=== PATIENT | female | born 1960 | race Caucasian/White ===

== ENCOUNTER 2017-03-29 08:00 | Outpatient (CLI) | payer BC ==
--- NOTE | 2017-03-29 10:05 | MRI ---
MRI LUMBAR SPINE: DATE: 03/29/17. PROVIDED CLINICAL HISTORY: Back pain with radiculopathy. FINDINGS: Five lumbar vertebral bodies are assumed. Lumbar alignment appears normal. Vertebral body heights a ppear preserved. The conus medullaris is normal in signal and terminates at an appropriate level. N o focal concerning region of marrow signal abnormality is evident. The visualized extraspinal soft t issues demonstrate no concerning abnormality. T2 hyperintensity involving the left kidney is incompl etely characterized on the basis of this study but, statistically reflects a cyst. At T12-L1, there is a broad-based disk bulge and bilateral facet arthritis without significant centra l canal or foraminal narrowing apparent. At L1-2, there is bilateral facet arthritis. There is no significant central canal or foraminal narr owing apparent. At L2-3, there is a broad-based disk bulge and bilateral facet arthritis. There is no significant ce ntral canal stenosis apparent. There is mild right foraminal narrowing. At L3-4, there is a broad-based disk bulge and bilateral face arthritis. There is mild central canal stenosis. There is no significant foraminal narrowing. At L4-5, there is disk space narrowing and end plate degenerative change. There is a broad-based dis k bulge with a superimposed small central disk herniation. There is mild central canal stenosis. Th ere is no significant foraminal narrowing apparent. At L5-S1, there is bilateral facet arthritis. There is a broad-based disk bulge and an annular tear involving the foraminal portion of the disk to the left of midline. There is no significant central canal or foraminal narrowing apparent. IMPRESSION: Lumbar disk and facet degenerative changes as described above. POS: MARY ANNE
== END 2017-03-29 08:01 | disposition home or self-care (01) ==
LOC: MRI 08:00
PROVIDERS: ATTEND Nurse Practitioner Family
DX: M51.16 Intervertebral disc disorders with radiculopathy, lumbar region (principal); M47.26 Other spondylosis with radiculopathy, lumbar region
CPT/HCPCS: 72148

== ENCOUNTER 2017-05-06 20:30 | Outpatient (CLI) | payer BC | END 2017-05-06 20:31 | disposition home or self-care (01) | LOC: SLEEPLAB 20:30 | PROVIDERS: ATTEND Internal Medicine Pulmonary Disease | DX: G47.33 Obstructive sleep apnea (adult) (pediatric) (principal); I10 Essential (primary) hypertension | CPT/HCPCS: 95811 ==

== ENCOUNTER 2017-05-07 07:53 | Outpatient (CLI) | payer BC | END 2017-05-07 07:54 | disposition home or self-care (01) | LOC: BICMAMMO 07:53 | PROVIDERS: ATTEND Obstetrics & Gynecology | DX: Z12.31 Encounter for screening mammogram for malignant neoplasm of breast (principal) | CPT/HCPCS: 77063; 77067 ==

== ENCOUNTER 2018-05-12 08:17 | Outpatient (CLI) | payer BC ==
--- NOTE | 2018-05-12 13:42 | MMO ---
Bilateral MAMMO Bilat Screen [facility]. CLINICAL HISTORY: Patient is 58 years old and is seen for screening. The patient has the following family history of breast cancer: 2 maternal aunts; maternal grandmother and maternal aunt, Great Aunt. The patient has no personal history of cancer. VIEWS: The views performed were: bilateral craniocaudal with tomosynthesis and bilateral mediolateral oblique with tomosynthesis. FILMS COMPARED: The present examination has been compared to prior imaging studies performed at [facility] on 04/13/2009, at [facility] on 04/13/2010, 04/14/2010, 04/18/2011, 04/21/2012, 04/22/2013, 04/26/2014, 04/27/2015, 04/30/2016 and 05/07/2017, at [facility] on 04/23/2008, and at [facility] on 03/22/2008. MAMMOGRAM FINDINGS: There are scattered fibroglandular densities. There are no suspicious masses, calcifications or areas of architectural distortion. IMPRESSION: THERE IS NO MAMMOGRAPHIC EVIDENCE OF MALIGNANCY. A ROUTINE FOLLOW-UP MAMMOGRAM IN 1 YEAR IS RECOMMENDED. THE RESULTS OF THIS EXAM WERE SENT TO THE PATIENT. ACR BI-RADS Category 1 - Negative MAMMOGRAPHY NOTE: 1. A negative mammogram report should not delay a biopsy if a dominant of clinically suspicious mass is present. 2. Approximately 10% to 15% of breast cancers are not detected by mammography. 3. Adenosis and dense breasts may obscure an underlying neoplasm.
== END 2018-05-12 08:18 | disposition home or self-care (01) ==
LOC: BICMAMMO 08:17
PROVIDERS: ATTEND Obstetrics & Gynecology
DX: Z12.31 Encounter for screening mammogram for malignant neoplasm of breast (principal); Z80.3 Family history of malignant neoplasm of breast
CPT/HCPCS: 77063; 77067

== ENCOUNTER 2019-12-30 07:35 | Outpatient (CLI) | payer BC, OTHER ==
[2019-12-30 20:25] LABS: SARS-CoV-2 MS2 Positive; SARS-CoV-2 N Gene Negative; SARS-CoV-2 S Gene Negative; SARS-CoV-2 by NAA Not Detected (NotDetected); SARS-CoV-2 orf1ab Negative
== END 2019-12-30 07:36 | disposition home or self-care (01) ==
LOC: LABBT 07:35
PROVIDERS: ATTEND Physician Assistant Medical
DX: K21.9 Gastro-esophageal reflux disease without esophagitis (principal); F45.8 Other somatoform disorders; R05 Cough; Z20.828 Contact with and (suspected) exposure to other viral communicable diseases
CPT/HCPCS: 87635; U0003

== ENCOUNTER → 2020-01-04 | Day surgery (SDC) | payer BC ==
[~2020-01-04] MED LIST: Iothalamate Meglumine 60% 50 ML VIAL FS ONE
== END ==
LOC: ENDO/OP 07:38
PROVIDERS: ATTEND Physician Assistant Medical
DX: K21.9 Gastro-esophageal reflux disease without esophagitis (principal); Z88.0 Allergy status to penicillin; Z88.1 Allergy status to other antibiotic agents; Z88.5 Allergy status to narcotic agent; Z88.8 Allergy status to other drugs, medicaments and biological substances
CPT/HCPCS: 91034

== ENCOUNTER 2021-04-24 15:32 | Outpatient (CLI) | payer BC | END 2021-04-24 15:33 | disposition home or self-care (01) | LOC: BICMAMMO 15:32 | PROVIDERS: ATTEND Obstetrics & Gynecology | DX: Z12.31 Encounter for screening mammogram for malignant neoplasm of breast (principal); Z80.3 Family history of malignant neoplasm of breast | CPT/HCPCS: 77063; 77067 ==

== ENCOUNTER 2021-07-18 12:00 | Inpatient (IN) | payer BC ==
[2021-07-18] MEDS ORDERED: Vancomycin 1 GM/200 ML BAG ONE (12:37)
[2021-07-18 12:47] LABS: #Basophils 0.1 thou/uL (0.0-0.2); #Lymphocytes 1.7 thou/uL (1.20-3.40); #Monocytes 1.5 thou/uL (0.11-0.59); #Neutrophils 13.1 thou/uL (1.40-6.50); %Basophils 0.4 % (0.0-1.0); %Eosinophils 0.1 % (0.0-10.0); %Lymphocytes 10.4 % (21.0-51.0); %Neutrophils 80.1 % (42.0-75.0); Hemoglobin 12.1 g/dL (12.0-16.0); Mean Corpuscular HGB CONC 33.2 g/dL (32.0-36.0); Mean Corpuscular Hemoglobin 31.2 pg (27.0-31.0); Mean Platelet Volume 6.9 fL (7.4-10.4); Platelet Count 290 thou/uL (130-400); RBC Distribution Width 11.7 % (11.5-14.5); Red Blood Cell (RBC) Count 3.88 mill/uL (4.20-5.40); White Blood Cell (WBC) Count 16.3 thou/uL (4.8-10.8)
[2021-07-18 13:19] LABS: ALT (SGPT) 11 U/L (8-55); AST (SGOT) 13 U/L (5-34); Albumin 4.4 g/dL (3.4-4.8); Alkaline Phosphatase 75 U/L (40-110); Anion Gap 16 mmol/L (10-20); BUN (Urea Nitrogen) 10 mg/dL (9.8-20.1); Bilirubin, Total 0.5 mg/dL (0.2-1.2); Calc. Creatinine Clearance 0 mL/min (70-130); Calcium 9.8 mg/dL (7.8-10.44); Carbon Dioxide 23 mmol/L (23-31); Chloride 103 mmol/L (98-107); Globulin 3.8 g/dL (2.4-3.5); Glucose 122 mg/dL (80-115); Potassium 3.7 mmol/L (3.5-5.1); Protein, Total 8.2 g/dL (5.8-8.1); Sodium 138 mmol/L (136-145)
[2021-07-18] MEDS ORDERED: cefTRIAXone\\ROCEPHIN 1 GM VIAL ONE (13:52)
[2021-07-18] MEDS ORDERED: Ondansetron PF 4 MG/2 ML Vial IVP PRN (15:45)
[2021-07-18] MEDS ORDERED: Ondansetron ODT 4 MG TAB SL PRN (15:45)
[2021-07-18] MEDS ORDERED: Acetaminophen 325 MG TAB PO PRN (15:45)
[2021-07-18] MEDS ORDERED: Sodium Chloride 0.9% 1,000 ML IV SCH ×2 (15:45→16:42)
[2021-07-18 15:54] VITALS: BMI 23.8
[2021-07-18 21:47] LABS: SARS-CoV-2 PCR by NAA Not Detected (NotDetected)
[2021-07-19 07:04] LABS: #Eosinphils 0.1 thou/uL (0.0-0.7); #Lymphocytes 2.6 thou/uL (1.20-3.40); #Monocytes 0.8 thou/uL (0.11-0.59); #Neutrophils 5.2 thou/uL (1.40-6.50); %Eosinophils 0.9 % (0.0-10.0); %Lymphocytes 30.1 % (21.0-51.0); %Monocytes 9.2 % (0.0-10.0); %Neutrophils 59.9 % (42.0-75.0); Hemoglobin 10.7 g/dL (12.0-16.0); Mean Corpuscular HGB CONC 32.9 g/dL (32.0-36.0); Mean Corpuscular Hemoglobin 31.6 pg (27.0-31.0); Mean Platelet Volume 7.2 fL (7.4-10.4); Platelet Count 240 thou/uL (130-400); RBC Distribution Width 11.9 % (11.5-14.5); Red Blood Cell (RBC) Count 3.38 mill/uL (4.20-5.40); White Blood Cell (WBC) Count 8.6 thou/uL (4.8-10.8)
[2021-07-19 07:24] LABS: Anion Gap 9 mmol/L (10-20); BUN (Urea Nitrogen) 8 mg/dL (9.8-20.1); Calc. Creatinine Clearance 99 mL/min (70-130); Calcium 8.6 mg/dL (7.8-10.44); Carbon Dioxide 28 mmol/L (23-31); Chloride 106 mmol/L (98-107); Glucose 92 mg/dL (80-115); Potassium 3.8 mmol/L (3.5-5.1); Sodium 139 mmol/L (136-145)
[2021-07-19] MEDS: Citalopram 20 MG TAB PO SCH (08:28)
[2021-07-19] MEDS: Enoxaparin Sodium 40 MG/0.4 ML SYRINGE SC SCH (08:29)
[2021-07-19] MEDS ORDERED: valACYclovir 500 MG TAB PO SCH (13:15)
[2021-07-19] MEDS: Vancomycin 1 GM in Premix Bag 1 BAG IVPB SCH (14:00)
[2021-07-19] MEDS ORDERED: Ondansetron PF 4 MG/2 ML Vial IVP PRN (14:50)
[2021-07-19] MEDS ORDERED: Morphine 2 MG/ML VIAL SLOW IVP PRN (14:50)
[2021-07-19] MEDS: Acetaminophen 325 MG TAB PO PRN ×2 (15:17→20:15)
[2021-07-20] MEDS ORDERED: valACYclovir 500 MG TAB PO SCH ×2 (02:00→09:00)
[2021-07-20] MEDS: Vancomycin 1 GM in Premix Bag 1 BAG IVPB SCH ×2 (02:48→13:31)
[2021-07-20] MEDS ORDERED: Levothyroxine Sodium 50 MCG TAB PO SCH (06:00)
[2021-07-20 06:09] LABS: #Eosinphils 0.1 thou/uL (0.0-0.7); #Lymphocytes 2.5 thou/uL (1.20-3.40); #Monocytes 0.8 thou/uL (0.11-0.59); #Neutrophils 4.1 thou/uL (1.40-6.50); %Basophils 0.3 % (0.0-1.0); %Eosinophils 1.2 % (0.0-10.0); %Lymphocytes 33.4 % (21.0-51.0); %Monocytes 10.2 % (0.0-10.0); Hemoglobin 12.7 g/dL (12.0-16.0); Mean Corpuscular HGB CONC 33.4 g/dL (32.0-36.0); Mean Corpuscular Hemoglobin 31.5 pg (27.0-31.0); Mean Corpuscular Volume 94.4 fL (78.0-98.0); Mean Platelet Volume 6.7 fL (7.4-10.4); Platelet Count 305 thou/uL (130-400); RBC Distribution Width 11.7 % (11.5-14.5); Red Blood Cell (RBC) Count 4.03 mill/uL (4.20-5.40); White Blood Cell (WBC) Count 7.4 thou/uL (4.8-10.8)
[2021-07-20 06:24] LABS: Anion Gap 13 mmol/L (10-20); BUN (Urea Nitrogen) 9 mg/dL (9.8-20.1); Calc. Creatinine Clearance 95 mL/min (70-130); Calcium 9.3 mg/dL (7.8-10.44); Carbon Dioxide 27 mmol/L (23-31); Chloride 102 mmol/L (98-107); Glucose 91 mg/dL (80-115); Potassium 3.9 mmol/L (3.5-5.1); Sodium 138 mmol/L (136-145)
[2021-07-20 07:37] VITALS: BP 146/78; TEMP 97.9
[2021-07-20] MEDS: Citalopram 20 MG TAB PO SCH (08:04)
[2021-07-20] MEDS: Enoxaparin Sodium 40 MG/0.4 ML SYRINGE SC SCH (08:04)
[2021-07-20] MEDS: Acetaminophen 325 MG TAB PO PRN (08:05)
[2021-07-20 13:28] LABS: Vancomycin, Trough 8.4 ug/mL
[2021-07-21] MEDS ORDERED: VANCOMYCIN 1.25 GM/250 ML BAG 1.25 GM in Premix Bag 1 BAG IVPB SCH (02:00)
== END 2021-07-20 16:55 | disposition home or self-care (01) | DRG 872 ==
LOC: ERS 12:00 → T4-A 13:49 → OBSVTOIN 13:49
PROVIDERS: ADMIT Internal Medicine; ATTEND Internal Medicine
DX: A41.9 Sepsis, unspecified organism (principal); L03.115 Cellulitis of right lower limb; Z20.822 Contact with and (suspected) exposure to COVID-19; E03.9 Hypothyroidism, unspecified; F41.9 Anxiety disorder, unspecified; F32.A Depression, unspecified; Z88.0 Allergy status to penicillin; Z88.1 Allergy status to other antibiotic agents; Z88.8 Allergy status to other drugs, medicaments and biological substances; Z79.899 Other long term (current) drug therapy; Z79.890 Hormone replacement therapy
CPT/HCPCS: 36415; 80048; 80053; 80202; 83605; 85025; 87040; 96365; 96366; 96375; J0696; J1650; J3370; J7050; U0003; U0005

== ENCOUNTER 2022-01-01 15:41 | Outpatient (CLI) | payer BC | END 2022-01-01 15:42 | disposition home or self-care (01) | LOC: BICRAD 15:41 | PROVIDERS: ATTEND Neurological Surgery | DX: M47.22 Other spondylosis with radiculopathy, cervical region (principal); M43.12 Spondylolisthesis, cervical region; Z98.890 Other specified postprocedural states | CPT/HCPCS: 72040 ==

== ENCOUNTER 2022-01-01 19:22 | Emergency (ER) | payer BC ==
[2022-01-01 19:56] LABS: #Eosinphils 0.1 thou/uL (0.0-0.7); #Lymphocytes 2.9 thou/uL (1.20-3.40); #Monocytes 0.7 thou/uL (0.11-0.59); #Neutrophils 4.6 thou/uL (1.40-6.50); %Basophils 0.5 % (0.0-1.0); %Eosinophils 1.2 % (0.0-10.0); %Lymphocytes 34.7 % (21.0-51.0); %Monocytes 7.9 % (0.0-10.0); %Neutrophils 55.7 % (42.0-75.0); Hemoglobin 13.3 g/dL (12.0-16.0); Mean Corpuscular HGB CONC 33.7 g/dL (32.0-36.0); Mean Corpuscular Hemoglobin 31.5 pg (27.0-31.0); Mean Corpuscular Volume 93.3 fl (78.0-98.0); Mean Platelet Volume 6.3 fL (7.4-10.4); Platelet Count 404 thou/uL (130-400); RBC Distribution Width 12.2 % (11.5-14.5); Red Blood Cell (RBC) Count 4.22 mill/uL (4.20-5.40); White Blood Cell (WBC) Count 8.2 thou/uL (4.8-10.8)
[2022-01-01 20:17] LABS: ALT (SGPT) 23 U/L (8-55); AST (SGOT) 32 U/L (5-34); Alkaline Phosphatase 83 U/L (40-110); Anion Gap 15 mmol/L (10-20); BUN (Urea Nitrogen) 9 mg/dL (9.8-20.1); Bilirubin, Total 0.3 mg/dL (0.2-1.2); Calc. Creatinine Clearance 0 mL/min (70-130); Calcium 10.2 mg/dL (7.8-10.44); Carbon Dioxide 27 mmol/L (23-31); Chloride 99 mmol/L (98-107); Estimated GFR 97; Glucose 110 mg/dL (80-115); Potassium 4.1 mmol/L (3.5-5.1); Sodium 137 mmol/L (136-145)
[2022-01-01] MEDS ORDERED: Ketorolac Tromethamine 30 MG/ML VIAL ONE ×2 (22:32→22:36)
[2022-01-01] MEDS ORDERED: Metoclopramide HCl 10 MG TAB ONE (22:32)
== END 2022-01-01 22:03 | disposition home or self-care (01) ==
LOC: ERS 19:22
DX: S16.1XXA Strain of muscle, fascia and tendon at neck level, initial encounter (principal); X58.XXXA Exposure to other specified factors, initial encounter
CPT/HCPCS: 36415; 71045; 80053; 84484; 85025; 93005; 96372; J1885

== ENCOUNTER 2022-05-07 09:03 | Outpatient (CLI) | payer BC | END 2022-05-07 09:04 | disposition home or self-care (01) | LOC: BICMAMMO 09:03 | PROVIDERS: ATTEND Internal Medicine | DX: Z12.31 Encounter for screening mammogram for malignant neoplasm of breast (principal); Z80.3 Family history of malignant neoplasm of breast | CPT/HCPCS: 77063; 77067 ==

== ENCOUNTER 2022-06-04 10:12 | Emergency (ER) | payer BC ==
[2022-06-04] MEDS ORDERED: Ketorolac Tromethamine 30 MG/ML VIAL ONE (14:09)
== END 2022-06-04 14:25 | disposition home or self-care (01) ==
LOC: ERS 10:12
DX: M25.511 Pain in right shoulder (principal); E03.9 Hypothyroidism, unspecified
CPT/HCPCS: 96372; 99283; J1885

== ENCOUNTER 2022-06-06 20:33 | Emergency (ER) | payer BC ==
[2022-06-06] MEDS ORDERED: Morphine 4 MG/ML VIAL ONE (21:36)
[2022-06-06] MEDS ORDERED: Ketorolac Tromethamine 30 MG/ML VIAL ONE (21:36)
== END 2022-06-06 22:02 | disposition home or self-care (01) ==
LOC: ERS 20:33
DX: M54.12 Radiculopathy, cervical region (principal); E03.9 Hypothyroidism, unspecified
CPT/HCPCS: 96372; 99283; J1885; J2270

== ENCOUNTER 2022-06-21 13:58 | Outpatient (CLI) | payer BC | END 2022-06-21 13:59 | disposition home or self-care (01) | LOC: MRI 13:58 | PROVIDERS: ATTEND Orthopaedic Surgery Hand Surgery | DX: D49.9 Neoplasm of unspecified behavior of unspecified site (principal); M67.422 Ganglion, left elbow ==

== ENCOUNTER 2022-06-25 20:24 | Emergency (ER) | payer BC ==
[2022-06-25] MEDS ORDERED: Ketorolac Tromethamine 30 MG/ML VIAL ONE (22:49)
[2022-06-25] MEDS ORDERED: HYDROcodone/Acetaminophen 10/325 mg Tablet ONE (22:52)
== END 2022-06-25 23:23 | disposition home or self-care (01) ==
LOC: ERS 20:24
DX: M54.2 Cervicalgia (principal); G89.29 Other chronic pain; E03.9 Hypothyroidism, unspecified; Z79.899 Other long term (current) drug therapy
CPT/HCPCS: 96372; 99283; J1885

== ENCOUNTER 2022-06-27 12:41 | Emergency (ER) | payer BC ==
[2022-06-27] MEDS ORDERED: Ketorolac Tromethamine 30 MG/ML VIAL ONE (14:27)
[2022-06-27] MEDS ORDERED: Morphine 4 MG/ML VIAL ONE (14:27)
== END 2022-06-27 16:14 | disposition home or self-care (01) ==
LOC: ERS 12:41
DX: M54.2 Cervicalgia (principal); G89.29 Other chronic pain; E03.9 Hypothyroidism, unspecified; Z79.899 Other long term (current) drug therapy
CPT/HCPCS: 96372; 99282; J1885; J2270

== ENCOUNTER 2022-06-28 08:27 | Observation (INO) | payer BC ==
[2022-06-28] MEDS ORDERED: Morphine 4 MG/ML VIAL ONE ×2 (11:21→13:47)
[2022-06-28] MEDS ORDERED: Ketorolac Tromethamine 30 MG/ML VIAL ONE (11:21)
[2022-06-28 11:26] LABS: #Eosinphils 0.1 thou/uL (0.0-0.7); #Lymphocytes 2.1 thou/uL (1.20-3.40); #Monocytes 0.6 thou/uL (0.11-0.59); #Neutrophils 5.5 thou/uL (1.40-6.50); %Basophils 0.3 % (0.0-1.0); %Eosinophils 0.8 % (0.0-10.0); %Lymphocytes 25.3 % (21.0-51.0); %Monocytes 6.9 % (0.0-10.0); %Neutrophils 66.7 % (42.0-75.0); Hemoglobin 14.4 g/dL (12.0-16.0); Mean Corpuscular HGB CONC 34.1 g/dL (32.0-36.0); Mean Corpuscular Hemoglobin 31.3 pg (27.0-31.0); Mean Corpuscular Volume 91.7 fl (78.0-98.0); Mean Platelet Volume 6.7 fL (7.4-10.4); Platelet Count 332 10x3/uL (130-400); White Blood Cell (WBC) Count 8.2 10x3/uL (4.8-10.8)
[2022-06-28 11:44] LABS: ALT (SGPT) 18 U/L (8-55); AST (SGOT) 21 U/L (5-34); Albumin 5.1 g/dL (3.4-4.8); Alkaline Phosphatase 92 U/L (40-110); Anion Gap 16 mmol/L (10-20); BUN (Urea Nitrogen) 11 mg/dL (9.8-20.1); Bilirubin, Total 0.6 mg/dL (0.2-1.2); Calc. Creatinine Clearance 0 mL/min (70-130); Calcium 10.4 mg/dL (7.8-10.44); Carbon Dioxide 25 mmol/L (23-31); Chloride 98 mmol/L (98-107); Estimated GFR 96; Globulin 3.4 g/dL (2.4-3.5); Glucose 109 mg/dL (80-115); Potassium 4.2 mmol/L (3.5-5.1); Protein, Total 8.5 g/dL (5.8-8.1); Sodium 135 mmol/L (136-145)
[2022-06-28] MEDS ORDERED: HYDROcodone/Acetaminophen 5/325 mg Tablet PO PRN (15:16)
[2022-06-28] MEDS ORDERED: Ondansetron PF 4 MG/2 ML Vial IVP PRN (15:25)
[2022-06-28] MEDS ORDERED: Ondansetron ODT 4 MG TAB PO PRN (15:25)
[2022-06-28] MEDS ORDERED: Guaifenesin DM 100-10/5 ML UDCUP PO PRN (15:25)
[2022-06-28] MEDS ORDERED: Senokot S 8.6-50 MG TAB PO PRN (15:25)
[2022-06-28] MEDS ORDERED: Gabapentin 300 MG CAP PO SCH (15:30)
[2022-06-28 17:45] VITALS: BMI 23.8
[2022-06-28] MEDS: HYDROcodone/Acetaminophen 5/325 mg Tablet PO PRN (17:55)
[2022-06-28] MEDS: Morphine 4 MG/ML VIAL SLOW IVP PRN ×2 (19:05→23:38)
[2022-06-28] MEDS: Gabapentin 300 MG CAP PO SCH (21:19)
[2022-06-28] MEDS: CeleCOXIB 100 MG CAP PO SCH (21:19)
[2022-06-29] MEDS: Morphine 4 MG/ML VIAL SLOW IVP PRN ×2 (05:32→10:44)
[2022-06-29] MEDS ORDERED: Levothyroxine Sodium 50 MCG TAB PO SCH (06:00)
[2022-06-29] MEDS: CeleCOXIB 100 MG CAP PO SCH (08:53)
[2022-06-29] MEDS: Gabapentin 300 MG CAP PO SCH ×2 (08:53→15:08)
[2022-06-29] MEDS: HYDROcodone/Acetaminophen 5/325 mg Tablet PO PRN ×2 (08:59→15:11)
[2022-06-29] MEDS ORDERED: Estradiol 1 MG TAB PO SCH (09:00)
[2022-06-29] MEDS ORDERED: Citalopram 20 MG TAB PO SCH (09:00)
[2022-06-29 16:09] VITALS: BP 103/65; TEMP 98
== END 2022-06-29 19:35 | disposition home or self-care (01) ==
LOC: ERS 08:27 → ERHOLD 12:20 → T4-B 17:32
PROVIDERS: ADMIT Internal Medicine; ATTEND Internal Medicine
DX: M54.13 Radiculopathy, cervicothoracic region (principal); I10 Essential (primary) hypertension; E03.9 Hypothyroidism, unspecified; K21.9 Gastro-esophageal reflux disease without esophagitis; K58.9 Irritable bowel syndrome, unspecified; Z87.891 Personal history of nicotine dependence; Z79.890 Hormone replacement therapy; Z79.899 Other long term (current) drug therapy; Z88.0 Allergy status to penicillin; Z88.1 Allergy status to other antibiotic agents; Z88.8 Allergy status to other drugs, medicaments and biological substances; Z98.1 Arthrodesis status
CPT/HCPCS: 36415; 80053; 84484; 85025; 93005; 96374; 96375; 96376; G0378; J1885; J2270

== ENCOUNTER 2022-07-03 05:54 | Day surgery (SDC) | payer BC ==
[2022-07-02 08:57] VITALS: BMI 23.8
[2022-07-03] MEDS ORDERED: fentaNYL PF 100 MCG/2 ML SYRINGE ONE (06:11)
[2022-07-03] MEDS ORDERED: Bacitracin Zinc Ointment 30 gm TUBE ONE (06:24)
[2022-07-03] MEDS ORDERED: Betamet Acet/Betamet Na Ph 30 MG/5 ML VIAL ONE (06:24)
[2022-07-03] MEDS ORDERED: Bupivacaine PF 0.5% 30 ML VIAL ONE (06:24)
[2022-07-03] MEDS ORDERED: Dexmedetomidine 200 MCG/2 ML VIAL ONE (06:25)
[2022-07-03] MEDS ORDERED: PHENYLEPHRINE-NS 100 MCG/ML 10 ML SYRINGE ONE (06:25)
[2022-07-03] MEDS ORDERED: Famotidine/PF 20 mg/2ml Vial ONE (07:03)
[2022-07-03] MEDS ORDERED: Midazolam HCl 2 mg/2 ml Vial ONE (07:03)
[2022-07-03] MEDS ORDERED: Sodium Chloride 0.9% 100 ML ONE (07:38)
[2022-07-03] MEDS ORDERED: CEFAZOLIN 2 GM VIAL ONE (07:38)
[2022-07-03] MEDS ORDERED: PROPOFOL 200 MG/20 ML VIAL ONE (08:00)
[2022-07-03] MEDS ORDERED: Ondansetron PF 4 MG/2 ML Vial ONE (08:00)
[2022-07-03] MEDS ORDERED: Metoclopramide HCl 10 MG/2 ML VIAL ONE (08:00)
[2022-07-03] MEDS ORDERED: Lidocaine 1% PF 5 ML VIAL ONE (08:00)
[2022-07-03] MEDS ORDERED: Ketorolac Tromethamine 30 MG/ML VIAL ONE (08:00)
[2022-07-03] MEDS ORDERED: Dexamethasone 20 MG/5 ML VIAL ONE (08:00)
[2022-07-03] MEDS ORDERED: HYDROmorphone 2 MG/ML VIAL ONE (09:40)
[2022-07-03] MEDS ORDERED: Thrombin 5000 UNITS/5 ML VIAL ONE (10:10)
[2022-07-03] MEDS ORDERED: HYDROcodone/Acetaminophen 5/325 mg Tablet ONE (12:44)
== END 2022-07-03 13:30 | disposition home or self-care (01) ==
LOC: SDC 05:54
PROVIDERS: ATTEND Orthopaedic Surgery Hand Surgery
DX: G56.21 Lesion of ulnar nerve, right upper limb (principal); G56.03 Carpal tunnel syndrome, bilateral upper limbs; M67.422 Ganglion, left elbow; M77.11 Lateral epicondylitis, right elbow; G58.7 Mononeuritis multiplex; G54.0 Brachial plexus disorders; E03.9 Hypothyroidism, unspecified; E78.00 Pure hypercholesterolemia, unspecified; J45.909 Unspecified asthma, uncomplicated; K21.9 Gastro-esophageal reflux disease without esophagitis; Z88.0 Allergy status to penicillin; Z88.8 Allergy status to other drugs, medicaments and biological substances; Z79.899 Other long term (current) drug therapy
CPT/HCPCS: C1713; J0702; J1100; J1170; J1885; J2250; J2405; J2704; J2765; J3490; S0020; S0028

== ENCOUNTER 2022-10-29 10:18 | Outpatient (CLI) | payer BC ==
[2022-10-29 11:35] LABS: #Eosinphils 0.1 10x3/uL (0.0-0.5); #Monocytes 0.4 10x3/uL (0.0-1.1); #Neutrophils 3.1 10x3/uL (1.5-8.4); %Basophils 0.7 % (0.0-2.0); %Eosinophils 1.3 % (0.0-6.0); %Lymphocytes 33.8 % (18.0-47.0); %Monocytes 7.5 % (0.0-10.0); %Neutrophils 56.5 % (40.0-75.0); Hemoglobin 13.2 g/dL (12.0-15.5); Mean Corpuscular Hemoglobin 30.3 pg (27.0-33.0); Mean Corpuscular Volume 91.7 fl (81.6-98.3); Mean Platelet Volume 9.5 fl (7.4-10.4); Platelet Count 275 10x3/uL (150-450); RBC Distribution Width 12.3 % (11.5-14.5); Red Blood Cell (RBC) Count 4.36 10x6/uL (3.90-5.03); White Blood Cell (WBC) Count 5.5 10x3/uL (3.5-10.5)
[2022-10-29 12:14] LABS: Anion Gap 19 mmol/L (10-20); BUN (Urea Nitrogen) 12 mg/dL (9.8-20.1); Calc. Creatinine Clearance 0 mL/min (70-130); Calcium 9.5 mg/dL (7.8-10.44); Carbon Dioxide 21 mmol/L (23-31); Chloride 104 mmol/L (98-107); Estimated GFR 99; Glucose 83 mg/dL (80-115); Potassium 4.6 mmol/L (3.5-5.1); Sodium 139 mmol/L (136-145)
== END 2022-10-29 10:19 | disposition home or self-care (01) ==
LOC: LABBT 10:18
PROVIDERS: ATTEND Orthopaedic Surgery
DX: Z01.818 Encounter for other preprocedural examination (principal); M67.422 Ganglion, left elbow
CPT/HCPCS: 80048; 85025; 93005; 93010

== ENCOUNTER 2022-11-01 08:48 | Day surgery (SDC) | payer BC ==
[2022-10-29 11:08] VITALS: BMI 24.1
[2022-11-01] MEDS ORDERED: EPINEPHrine 1 MG/ML AMP ONE (10:43)
[2022-11-01] MEDS ORDERED: Lidocaine 1% (PF) 30 ML VIAL ONE (10:43)
[2022-11-01] MEDS ORDERED: HYDROmorphone 0.5 MG/0.5 ML SYRINGE ONE (10:45)
[2022-11-01] MEDS ORDERED: fentaNYL PF 100 MCG/2 ML SYRINGE ONE (10:45)
[2022-11-01] MEDS ORDERED: CEFAZOLIN 2 GM VIAL ONE (10:55)
[2022-11-01] MEDS ORDERED: Sodium Chloride 0.9% 100 ML ONE (10:55)
[2022-11-01] MEDS ORDERED: Ondansetron PF 4 MG/2 ML Vial ONE (11:12)
[2022-11-01] MEDS ORDERED: PROPOFOL 200 MG/20 ML VIAL ONE (11:12)
[2022-11-01] MEDS ORDERED: Metoclopramide HCl 10 MG/2 ML VIAL ONE (11:12)
[2022-11-01] MEDS ORDERED: Dexamethasone 20 MG/5 ML VIAL ONE (11:12)
[2022-11-01] MEDS ORDERED: Ketorolac Tromethamine 30 MG/ML VIAL ONE (11:12)
[2022-11-01] MEDS ORDERED: PHENYLEPHRINE-NS 100 MCG/ML 10 ML SYRINGE ONE (11:12)
[2022-11-01] MEDS ORDERED: Lidocaine 1% PF 5 ML VIAL ONE (11:12)
[2022-11-01] MEDS ORDERED: Glycopyrrolate 0.2 MG/ML 5 ML SYRINGE ONE (11:12)
== END 2022-11-01 14:30 | disposition home or self-care (01) ==
LOC: SDC 08:48
PROVIDERS: ATTEND Orthopaedic Surgery
PROC: 0LB40ZZ Excision of Left Upper Arm Tendon, Open Approach (ICD-10-PCS; principal; 2022-11-01)
PROC: 01N40ZZ Release Ulnar Nerve, Open Approach (ICD-10-PCS; principal; 2022-11-01)
DX: G56.22 Lesion of ulnar nerve, left upper limb (principal); D21.12 Benign neoplasm of connective and other soft tissue of left upper limb, including shoulder; M67.422 Ganglion, left elbow; J32.9 Chronic sinusitis, unspecified; E78.00 Pure hypercholesterolemia, unspecified; J45.909 Unspecified asthma, uncomplicated; K21.9 Gastro-esophageal reflux disease without esophagitis; F32.A Depression, unspecified; F41.9 Anxiety disorder, unspecified; E03.9 Hypothyroidism, unspecified; D64.9 Anemia, unspecified; K58.0 Irritable bowel syndrome with diarrhea; Z86.010 Personal history of colon polyps; Z90.49 Acquired absence of other specified parts of digestive tract; Z90.710 Acquired absence of both cervix and uterus; Z88.0 Allergy status to penicillin; Z88.8 Allergy status to other drugs, medicaments and biological substances; Z88.5 Allergy status to narcotic agent; Z98.890 Other specified postprocedural states; Z79.890 Hormone replacement therapy; Z79.899 Other long term (current) drug therapy
CPT/HCPCS: 88304; J0171; J1100; J1170; J1885; J2001; J2405; J2704; J2765; J3490

== ENCOUNTER 2022-12-03 21:05 | Emergency (ER) | payer BC | END 2022-12-03 23:15 | disposition home or self-care (01) | LOC: ERS 21:05 | DX: S93.401A Sprain of unspecified ligament of right ankle, initial encounter (principal); E03.9 Hypothyroidism, unspecified; W10.8XXA Fall (on) (from) other stairs and steps, initial encounter ==

== ENCOUNTER 2023-12-30 20:48 | Emergency (ER) | payer BC ==
[2023-12-31] MEDS ORDERED: HYDROcodone/Acetaminophen 5/325 mg Tablet ONE ×2 (01:14→01:21)
== END 2023-12-31 01:36 | disposition home or self-care (01) ==
LOC: ERS 20:48
DX: M25.512 Pain in left shoulder (principal); G62.9 Polyneuropathy, unspecified
CPT/HCPCS: 93005; 99283

== ENCOUNTER 2024-01-09 10:07 | Outpatient (CLI) | payer BC | END 2024-01-09 10:08 | disposition home or self-care (01) | LOC: BICRAD 10:07 | PROVIDERS: ATTEND Physician Assistant Surgical | DX: M54.2 Cervicalgia (principal); M47.816 Spondylosis without myelopathy or radiculopathy, lumbar region; M43.12 Spondylolisthesis, cervical region; M79.603 Pain in arm, unspecified; Z98.1 Arthrodesis status | CPT/HCPCS: 72050 ==

== ENCOUNTER 2024-01-14 10:17 | Emergency (ER) | payer BC ==
[2024-01-14] MEDS ORDERED: Ketorolac Tromethamine 30 MG (1 mL) VIAL ONE (11:37)
[2024-01-14] MEDS ORDERED: methylPREDNISolone Sod Succ/PF 125 MG/2 ML VIAL ONE (11:38)
[2024-01-14] MEDS ORDERED: Orphenadrine Citrate 60 MG/2 ML VIAL ONE (11:38)
[2024-01-14] MEDS ORDERED: HYDROcodone/Acetaminophen 5/325 mg Tablet ONE (13:16)
== END 2024-01-14 13:22 | disposition home or self-care (01) ==
LOC: ERS 10:17
DX: M54.12 Radiculopathy, cervical region (principal); G89.29 Other chronic pain; Z79.899 Other long term (current) drug therapy; E03.9 Hypothyroidism, unspecified
CPT/HCPCS: 96372; J1885; J2360; J2919

== ENCOUNTER 2024-01-23 13:18 | Outpatient (CLI) | payer BC | END 2024-01-23 13:19 | disposition home or self-care (01) | LOC: MRI 13:18 | PROVIDERS: ATTEND Neurological Surgery | DX: M47.22 Other spondylosis with radiculopathy, cervical region (principal); M43.13 Spondylolisthesis, cervicothoracic region; Z98.1 Arthrodesis status | CPT/HCPCS: 72141 ==

== ENCOUNTER 2024-01-29 05:14 | Emergency (ER) | payer BC ==
[~2024-01-29 05:14] MED LIST changes: -Iothalamate Meglumine 60% 50 ML VIAL FS ONE; +Ketorolac Tromethamine 30 MG (1 mL) VIAL ONE; +Morphine 4 MG/ML VIAL ONE; +Orphenadrine Citrate 60 MG/2 ML VIAL ONE; +methylPREDNISolone Sod Succ/PF 125 MG/2 ML VIAL ONE
== END 2024-01-29 06:03 | disposition home or self-care (01) ==
LOC: ERS 05:14
DX: M54.12 Radiculopathy, cervical region (principal)
CPT/HCPCS: 96372; 96374; 96375; J1885; J2272; J2360; J2919

== ENCOUNTER 2024-02-09 20:46 | Emergency (ER) | payer BC ==
[2024-02-10] MEDS ORDERED: Morphine 4 MG/ML VIAL ONE (00:37)
[2024-02-10] MEDS ORDERED: Ketorolac Tromethamine 30 MG (1 mL) VIAL ONE ×2 (00:37→01:12)
[2024-02-10] MEDS ORDERED: methylPREDNISolone Sod Succ/PF 125 MG/2 ML VIAL ONE ×2 (00:38→01:13)
[2024-02-10] MEDS ORDERED: HYDROcodone/Acetaminophen 5/325 mg Tablet ONE (01:13)
== END 2024-02-10 02:50 | disposition home or self-care (01) ==
LOC: ERS 20:46
DX: M54.12 Radiculopathy, cervical region (principal)
CPT/HCPCS: 96372; 99282; J1885; J2272; J2919

== ENCOUNTER 2024-02-21 15:46 | Outpatient (CLI) | payer BC ==
[2024-02-21 16:58] LABS: #Basophils Less than 0.03 10x3/uL (0.0-0.2); #Eosinophils Less than 0.03 10x3/uL (0.0-0.7); %Basophils 0.1 % (0.0-1.0); %Eosinophils 0.2 % (0.0-10.0); %Lymphocytes 24.6 % (21.0-51.0); %Monocytes 7.6 % (0.0-10.0); Hematocrit 33.9 % (36.0-47.0); Hemoglobin 11.1 g/dL (12.0-16.0); Mean Corpuscular HGB CONC 32.7 g/dL (32.0-36.0); Mean Corpuscular Hemoglobin 30.4 pg (27.0-31.0); Mean Corpuscular Volume 92.9 fL (78.0-98.0); Mean Platelet Volume 9.2 fL (7.4-10.4); Platelet Count 263 10x3/uL (130-400); RBC Distribution Width 13.7 % (11.5-14.5); Red Blood Cell (RBC) Count 3.65 mill/uL (4.20-5.40)
== END 2024-02-21 15:47 | disposition home or self-care (01) ==
LOC: LABBT 15:46
PROVIDERS: ATTEND Orthopaedic Surgery Hand Surgery
DX: Z01.818 Encounter for other preprocedural examination (principal); G56.22 Lesion of ulnar nerve, left upper limb; G56.02 Carpal tunnel syndrome, left upper limb
CPT/HCPCS: 85025

== ENCOUNTER 2024-02-28 06:29 | Day surgery (SDC) | payer BC ==
[2024-02-21 16:10] VITALS: BMI 23.5
[2024-02-28] MEDS ORDERED: Famotidine/PF 20 mg/2ml Vial ONE (09:02)
[2024-02-28] MEDS ORDERED: CEFAZOLIN 2 GM VIAL ONE (09:06)
[2024-02-28] MEDS ORDERED: Ondansetron PF 4 MG/2 ML Vial ONE (09:10)
[2024-02-28] MEDS ORDERED: Lidocaine 1% PF 5 ML VIAL ONE (09:10)
[2024-02-28] MEDS ORDERED: PROPOFOL 20 ML ONE (09:10)
[2024-02-28] MEDS ORDERED: ePHEDrine Sulfate 50 MG/10 ML VIAL ONE (09:33)
[2024-02-28] MEDS ORDERED: Betamet Acet/Betamet Na Ph 30 MG/5 ML VIAL ONE (10:51)
[2024-02-28] MEDS ORDERED: fentaNYL 50 mcg/mL 1 mL Vial ONE (12:07)
[2024-02-28] MEDS ORDERED: HYDROcodone/Acetaminophen 5/325 mg Tablet ONE (12:30)
[2024-02-28] MEDS ORDERED: Morphine 2 MG/ML VIAL ONE (12:49)
== END 2024-02-28 14:00 | disposition home or self-care (01) ==
LOC: SDC 06:29
PROVIDERS: ATTEND Orthopaedic Surgery Hand Surgery
PROC: 01N40ZZ Release Ulnar Nerve, Open Approach (ICD-10-PCS; principal; 2024-02-28)
PROC: 01N50ZZ Release Median Nerve, Open Approach (ICD-10-PCS; principal; 2024-02-28)
PROC: 01S40ZZ Reposition Ulnar Nerve, Open Approach (ICD-10-PCS; principal; 2024-02-28)
DX: G56.02 Carpal tunnel syndrome, left upper limb (principal); G56.23 Lesion of ulnar nerve, bilateral upper limbs; G47.30 Sleep apnea, unspecified; M67.40 Ganglion, unspecified site; M77.11 Lateral epicondylitis, right elbow; M77.12 Lateral epicondylitis, left elbow; I10 Essential (primary) hypertension; E03.9 Hypothyroidism, unspecified; F32.A Depression, unspecified; F41.9 Anxiety disorder, unspecified; J45.909 Unspecified asthma, uncomplicated; D64.9 Anemia, unspecified; K21.9 Gastro-esophageal reflux disease without esophagitis; Z90.49 Acquired absence of other specified parts of digestive tract; Z90.710 Acquired absence of both cervix and uterus; Z88.8 Allergy status to other drugs, medicaments and biological substances; Z88.0 Allergy status to penicillin; Z91.011 Allergy to milk products; Z91.048 Other nonmedicinal substance allergy status; Z79.890 Hormone replacement therapy; Z79.1 Long term (current) use of non-steroidal anti-inflammatories (NSAID); Z79.51 Long term (current) use of inhaled steroids; Z79.899 Other long term (current) drug therapy
CPT/HCPCS: 36416; A6223; J0702; J2272; J2405; J2704; J3010; J3490

== ENCOUNTER 2024-03-22 15:33 | Emergency (ER) | payer BC ==
[2024-03-22 18:13] LABS: #Basophils 0.03 10x3/uL (0.0-0.2); %Basophils 0.4 % (0.0-1.0); %Eosinophils 1.5 % (0.0-10.0); %Lymphocytes 37.1 % (21.0-51.0); %Monocytes 8.2 % (0.0-10.0); %Neutrophils 52.7 % (42.0-75.0); Hematocrit 40.1 % (36.0-47.0); Mean Corpuscular HGB CONC 32.4 g/dL (32.0-36.0); Mean Corpuscular Hemoglobin 30.4 pg (27.0-31.0); Mean Corpuscular Volume 93.7 fL (78.0-98.0); Mean Platelet Volume 8.9 fL (7.4-10.4); Platelet Count 289 10x3/uL (130-400); RBC Distribution Width 13.1 % (11.5-14.5); Red Blood Cell (RBC) Count 4.28 mill/uL (4.20-5.40)
[2024-03-22 18:31] LABS: ALT (SGPT) 15 U/L (8-55); AST (SGOT) 20 U/L (5-34); Albumin 4.6 g/dL (3.4-4.8); Alkaline Phosphatase 74 U/L (40-110); Anion Gap 15 mmol/L (10-20); BUN (Urea Nitrogen) 12 mg/dL (9.8-20.1); Bilirubin, Total 0.3 mg/dL (0.2-1.2); Calc. Creatinine Clearance 0 mL/min (70-130); Calcium 10.1 mg/dL (7.8-10.44); Carbon Dioxide 25 mmol/L (23-31); Chloride 102 mmol/L (98-107); Estimated GFR 102; Globulin 3.9 g/dL (2.4-3.5); Glucose 89 mg/dL (80-115); Potassium 3.7 mmol/L (3.5-5.1); Protein, Total 8.5 g/dL (5.8-8.1); Sodium 138 mmol/L (136-145)
== END 2024-03-22 19:37 | disposition home or self-care (01) ==
LOC: ERS 15:33
DX: Z48.811 Encounter for surgical aftercare following surgery on the nervous system (principal)
CPT/HCPCS: 36415; 80053; 83605; 85025; 87070; 87077; 87205; 99283

== ENCOUNTER 2024-10-29 13:37 | Outpatient (CLI) | payer BC | END 2024-10-29 13:38 | disposition home or self-care (01) | LOC: SCSMRI 13:37 | PROVIDERS: ATTEND Orthopaedic Surgery Hand Surgery | DX: M54.12 Radiculopathy, cervical region (principal); M48.02 Spinal stenosis, cervical region; M48.03 Spinal stenosis, cervicothoracic region; M24.28 Disorder of ligament, vertebrae | CPT/HCPCS: 72141 ==

== ENCOUNTER 2024-11-15 19:41 | Emergency (ER) | payer BC ==
[2024-11-15] MEDS ORDERED: Ketorolac Tromethamine 30 MG (1 mL) VIAL ONE (22:10)
[2024-11-15] MEDS ORDERED: predniSONE 20 MG TAB ONE (22:10)
== END 2024-11-15 22:40 | disposition home or self-care (01) ==
LOC: ERS 19:41
DX: T14.8XXA Other injury of unspecified body region, initial encounter (principal); G54.2 Cervical root disorders, not elsewhere classified; X58.XXXA Exposure to other specified factors, initial encounter
CPT/HCPCS: 96372; 99283; J1885; J2270; J7512

== ENCOUNTER 2024-11-16 22:40 | Emergency (ER) | payer BC ==
[2024-11-17] MEDS ORDERED: Methocarbamol 500 MG TAB ONE (04:03)
[2024-11-17 05:37] LABS: #Basophils Less than 0.03 10x3/uL (0.0-0.2); #Eosinophils 0.03 10x3/uL (0.0-0.7); #Monocytes 0.41 10x3/uL (0.11-0.59); #Neutrophils 4.37 10x3/uL (1.40-6.50); %Basophils 0.3 % (0.0-1.0); %Eosinophils 0.5 % (0.0-10.0); %Lymphocytes 26.7 % (21.0-51.0); %Monocytes 6.2 % (0.0-10.0); %Neutrophils 66.1 % (42.0-75.0); Hematocrit 40.3 % (36.0-47.0); Hemoglobin 13.2 g/dL (12.0-16.0); Mean Corpuscular Hemoglobin 29.7 pg (27.0-31.0); Mean Corpuscular Volume 90.8 fL (78.0-98.0); Platelet Count 290 10x3/uL (130-400); Red Blood Cell (RBC) Count 4.44 mill/uL (4.20-5.40); White Blood Cell (WBC) Count 6.60 10x3/uL (4.8-10.8)
[2024-11-17 05:47] LABS: ALT (SGPT) 14 U/L (Less than 34); AST (SGOT) 27 U/L (11-34); Albumin 5.3 g/dL (3.1-4.5); Alkaline Phosphatase 71 U/L (40-110); Anion Gap 18 mmol/L (10-20); BUN (Urea Nitrogen) 16 mg/dL (9.8-20.1); Bilirubin, Total 0.4 mg/dL (0.3-1.2); Calc. Creatinine Clearance 0 mL/min (70-130); Calcium 10.1 mg/dL (7.8-10.44); Carbon Dioxide 26 mmol/L (23-31); Chloride 100 mmol/L (98-107); Globulin 3.3 g/dL (2.4-3.5); Glucose 116 mg/dL (80-115); Potassium 4.3 mmol/L (3.5-5.1); Sodium 140 mmol/L (136-145)
== END 2024-11-17 05:04 | disposition home or self-care (01) ==
LOC: ERS 22:40
DX: M54.2 Cervicalgia (principal)
CPT/HCPCS: 80053; 85025; 96374; J2270

== ENCOUNTER 2024-11-29 19:12 | Emergency (ER) | payer BC ==
[2024-11-29] MEDS ORDERED: Ketorolac Tromethamine 30 MG (1 mL) VIAL ONE (21:09)
[2024-11-29] MEDS ORDERED: HYDROcodone/Acetaminophen 10/325 mg Tablet ONE (21:09)
== END 2024-11-29 21:34 | disposition home or self-care (01) ==
LOC: ERS 19:12
DX: G89.29 Other chronic pain (principal); M54.2 Cervicalgia
CPT/HCPCS: 96372; 99282; J1885

== ENCOUNTER 2025-03-02 11:50 | Outpatient (CLI) | payer BC | END 2025-03-02 11:51 | disposition home or self-care (01) | LOC: BICRAD 11:50 | DX: M25.552 Pain in left hip (principal); M47.816 Spondylosis without myelopathy or radiculopathy, lumbar region | CPT/HCPCS: 72100; 73521 ==